=== PATIENT | male | born 1970 | race Caucasian/White ===

== ENCOUNTER 2022-02-03 09:04 | Day surgery (SDC) | payer MEDICAID ==
[~2022-02-03 09:04] MED LIST: Lactated Ringers 1,000 ML IV SCH; Propofol 200 MG/20 ML SDV ONE; fentaNYL 100 MCG/2 ML SDV ONE
[2022-02-03] MEDS ORDERED: Propofol 200 MG/20 ML SDV ONE (12:04)
[2022-02-03] MEDS ORDERED: fentaNYL 100 MCG/2 ML SDV ONE (12:04)
[2022-02-03] MEDS ORDERED: Ondansetron 4 MG/2 ML SDV IVPUSH PRN (13:40)
[2022-02-03] MEDS ORDERED: Lactated Ringers 1,000 ML IV SCH (13:45)
[2022-02-03 14:14] VITALS: BP 98/56; PULSE 61
== END 2022-02-03 14:22 | disposition home or self-care (01) ==
LOC: MW.SDS 09:04
PROVIDERS: ATTEND Surgery
DX: K62.5 Hemorrhage of anus and rectum (principal); K64.8 Other hemorrhoids; J44.9 Chronic obstructive pulmonary disease, unspecified; F31.9 Bipolar disorder, unspecified; Z98.890 Other specified postprocedural states; Z88.5 Allergy status to narcotic agent; Z79.899 Other long term (current) drug therapy; Z90.49 Acquired absence of other specified parts of digestive tract
CPT/HCPCS: 45378; J2704; J3010; J7120